=== PATIENT | male | born 1990 | race Caucasian/White ===

== ENCOUNTER 2016-08-30 10:10 | Emergency (ER) | payer OTHER ==
[~2016-08-30] VITALS: Ht 175.2 cm; Wt 88.0 kg
[~2016-08-30 10:10] MED LIST: ALBUTEROL SULF0.5 M1 INH; Atrovent I0.5 MG/2.5 INH; BACTRIM DS 8001 TA1 PO; NAPROXEN500 MG PO; SERTRALINE HYDR50 MG PO
== END 2016-08-30 11:42 | disposition home or self-care (01) ==
LOC: ED 10:10
DX: Z29.14 Encounter for prophylactic rabies immune globulin (principal); Z88.1 Allergy status to other antibiotic agents

== ENCOUNTER 2016-09-03 09:32 | Emergency (ER) | payer OTHER ==
[~2016-09-03] VITALS: Ht 175.2 cm; Wt 88.0 kg
== END 2016-09-03 09:54 | disposition home or self-care (01) ==
LOC: ED 09:32
DX: Z29.14 Encounter for prophylactic rabies immune globulin (principal); R03.0 Elevated blood-pressure reading, without diagnosis of hypertension; Z88.1 Allergy status to other antibiotic agents